=== PATIENT | female | born 1975 | race Caucasian/White ===

== ENCOUNTER 2018-02-21 14:25 | Emergency (ER) | payer OTHER, MEDICAID ==
[~2018-02-21] VITALS: Ht 157.5 cm; Wt 83.9 kg
[~2018-02-21 14:25] MED LIST: AMOXICILLIN 50500 M1 PO; BUSPIRONE HCL10 MG; BUSPIRONE HCL10 MG PO; CYMBALTA60 MG PO; FIORICET 50-301 EACH PO; LEXAPRO 10 MG T10 MG PO; NAPROSYN500 MG PO; NORCO 5-325 TA1 EACH PO; ONDANSETRON HCL4 M2 PO; PENICILLIN VK500 M1 PO; PHENERGAN 25 MG25 M1 PO; SERTRALINE HCL50 MG PO; TEGRETOL XR400 MG PO; TEGRETOL200 MG PO; TORADOL 10 MG T10 MG PO; TRAMADOL 50 MG50 MG PO; ZOFRAN ODT4 MG PO; ZOLOFT50 MG PO
[2018-02-21] MEDS ORDERED: NORCO 5-325 TA1 EACH PO (14:45)
[2018-02-21] MEDS ORDERED: AMOXICILLIN 50500 MG PO (14:45)
[2018-02-21 14:54] VITALS: BP 167/105
== END 2018-02-21 14:54 | disposition home or self-care (01) ==
LOC: M.ERS 14:25
DX: K08.89 Other specified disorders of teeth and supporting structures (principal); I10 Essential (primary) hypertension; F31.9 Bipolar disorder, unspecified; F17.210 Nicotine dependence, cigarettes, uncomplicated